=== PATIENT | female | born 1995 | race American Indian/Alaskan Native ===

== ENCOUNTER 2021-10-17 08:30 | Emergency (ER) | payer OTHER ==
[2021-10-17] MEDS ORDERED: HYDROcodone/ACETAMINOPHEN 5-325 MG TAB PO ONE (10:57)
--- NOTE | 2021-10-17 11:01 | Emergency Department Report ---
ED Back Pain/Injury HPI - General Chief Complaint: Back Pain/Injury Stated Complaint: BACK PAIN Time Seen by Provider: 10/17/21 10:19 Source: patient Limitations: No Limitations - History of Present Illness Initial Comments: 26-year-old female with no significant past medical history reports to the ER with complaints of upper back pain after stepping on a Lego and falling onto a tote about a week ago. Patient also recently reports falling into her door frame of her car a few days ago thus increasing her back pain. Patient denies any numbness or tingling in the lower extremity, denies any pelvic numbness or saddle anesthesia. Patient denies any loss of bowel or bladder function. Patient is still able to ambulate. Patient reports taking ibuprofen 800mg, 3 times since her injury. Patient reports no other acute symptoms at this time - Related Data Previous Rx's Medication Instructions Recorded Last Taken Type Acetaminophen/Codeine [Tylenol 1 tab PO Q6H PRN 3 Days #10 tab 10/17/21 Unknown Rx /Codeine # 3 tab] Ibuprofen [Motrin] 800 mg PO Q8HR PRN 7 Days #21 10/17/21 Unknown Rx tablet methOCARBAMOL [Robaxin TAB] 500 mg PO Q8H PRN 7 Days #21 tab 10/17/21 Unknown Rx Allergies Allergy/AdvReac Type Severity Reaction Status Date / Time avocado Allergy Anaphylaxis Verified 10/17/21 09:12 ED Review of Systems ROS: Stated complaint: BACK PAIN Other details as noted in HPI Comment: All other systems reviewed and negative Musculoskeletal: back pain ED Past Medical Hx - Past Medical History Previous Medical History?: No - Surgical History Past Surgical History?: No - Social History Smoking Status: Never Smoker - Medications Home Medications: Home Medications Medication Instructions Recorded Confirmed Last Taken Type Acetaminophen/Codeine [Tylenol 1 tab PO Q6H PRN 3 Days #10 tab 10/17/21 Unknown Rx /Codeine # 3 tab] Ibuprofen [Motrin] 800 mg PO Q8HR PRN 7 Days #21 10/17/21 Unknown Rx tablet methOCARBAMOL [Robaxin TAB] 500 mg PO Q8H PRN 7 Days #21 tab 10/17/21 Unknown Rx ED Physical Exam - General Limitations: No Limitations General appearance: alert, in no apparent distress - Head Head exam: Present: atraumatic, normocephalic - Eye Eye exam: Present: normal appearance - ENT ENT exam: Present: mucous membranes moist - Neck Neck exam: Present: normal inspection - Respiratory Respiratory exam: Present: normal lung sounds bilaterally. Absent: respiratory distress - Cardiovascular Cardiovascular Exam: Present: regular rate, normal rhythm. Absent: systolic murmur, diastolic murmur, rubs, gallop - GI/Abdominal GI/Abdominal exam: Present: soft, normal bowel sounds - Extremities Exam Extremities exam: Present: normal inspection - Back Exam Back exam: Present: normal inspection, tenderness (Thoracic area), paraspinal tenderness. Absent: vertebral tenderness - Neurological Exam Neurological exam: Present: alert, oriented X3 - Psychiatric Psychiatric exam: Present: normal affect, normal mood - Skin Skin exam: Present: warm, dry, intact, normal color. Absent: rash ED Course Vital Signs 10/17/21 10/17/21 09:09 13:41 Temperature 98.9 F 98.8 F Pulse Rate 69 72 Respiratory 14 18 Rate Blood Pressure 146/88 Blood Pressure 130/75 [Left] O2 Sat by Pulse 100 98 Oximetry ED Medical Decision Making - Radiology Data Radiology results: report reviewed [address] [address] XRay Report Signed Patient: HERMELINDO SUAREZ MR#: [id number] : 1995 Acct:[id number] Age/Sex: 26 / F ADM Date: 10/17/21 Loc: ED Attending Dr: Ordering Physician: WILLIS BURNS NP Date of Service: 10/17/21 Procedure(s): XR spine thoracic 2V Accession Number(s): [id number] cc: WILLIS BURNS NP Fluoro Time In Minutes: THORACIC SPINE 3 VIEWS INDICATION: back pain. COMPARISON: None. IMPRESSION: Normal alignment. 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 No acute osseous or soft tissue abnormality. Signer Name: Frank Stern Jr, MD Signed: 10/17/2021 11:35 AM Workstation Name: [id number] Transcribed By: TTR Dictated By: FRANK STERN JR, MD Electronically Authenticated By: FRANK STERN JR, MD Signed Date/Time: 10/17/21 1135 DD/ 113 TD/TT: - Medical Decision Making 26-year-old female reports to the ER with thoracic back pain after a fall about a week ago after tripping over a Lego and landing on her back onto a crate. As well as recently falling into the door frame of her car. Patient has no acute red flagsno /GI symptoms or loss of functions. No numbness no weakness no tingling lower extremities. No saddle anesthesia. No numbness or tingling in the pelvis. On physical exam there is thoracic paraspinal pain. No step-offs noted. No wounds noted. No swelling noted to the spinal column. No cervical or lumbar tenderness noted. X-ray of thoracic spine obtainedno acute process noted. See official report for more details. Patient received oral pain medicines while here in ER. Patient reports a slight decrease in her pain from a 9 to around about a 5 or 6 out of 10 pain score. Patient informed of her x-ray results. Patient informed to follow her primary care provider Patient agrees with plan of care and verbalized understanding. Patient is stable for discharge home. No further work-up is needed. Vital Signs 10/17/21 10/17/21 09:09 13:41 Temperature 98.9 F 98.8 F Pulse Rate 69 72 Respiratory 14 18 Rate Blood Pressure 146/88 Blood Pressure 130/75 [Left] O2 Sat by Pulse 100 98 Oximetry Critical care attestation.: If time is entered above; I have spent that time in minutes in the direct care of this critically ill patient, excluding procedure time. ED Disposition Clinical Impression: Muscle pain Back pain Qualifiers: Back pain location: thoracic back pain Chronicity: acute Back pain laterality: bilateral Qualified Code(s): M54.6 - Pain in thoracic spine Disposition: 01 HOME / SELF CARE / HOMELESS Is pt being admited?: No Condition: Stable Instructions: Acute Back Pain, Adult, Musculoskeletal Pain Prescriptions: Ibuprofen [Motrin] 800 mg PO Q8HR PRN 7 Days #21 tablet PRN Reason: Pain, Moderate (4-6) methOCARBAMOL [Robaxin TAB] 500 mg PO Q8H PRN 7 Days #21 tab PRN Reason: Muscle Spasm Acetaminophen/Codeine [Tylenol /Codeine # 3 tab] 1 tab PO Q6H PRN 3 Days #10 tab PRN Reason: Pain , Severe (7-10) Referrals: PRIMARY CARE, [Primary Care Provider] - 3-5 Days [facility] [Outside] - 3-5 Days Time of Disposition: 12:57
--- NOTE | 2021-10-17 11:39 | XRay Report ---
THORACIC SPINE 3 VIEWS INDICATION: back pain. COMPARISON: None. IMPRESSION: Normal alignment. Minimal to mild discogenic DJD is identified in the mid to upper thor acic spine. No acute osseous or soft tissue abnormality. Signer Name: Frank Mcdowell Jr, MD Signed: 10/17/2021 11:35 AM Workstation Name: [id number]
[2021-10-17] MEDS ORDERED: KETOROLAC 60 MG/2 ML INJ IM ONE (12:54)
[2021-10-17 13:42] VITALS: BP 130/75
== END 2021-10-17 13:42 | disposition home or self-care (01) ==
LOC: ED 08:30
DX: M79.10 Myalgia, unspecified site (principal); M54.9 Dorsalgia, unspecified; Z91.018 Allergy to other foods
CPT/HCPCS: 72070; 96372; 99283; J1885